=== PATIENT | male | born 1980 | race Caucasian/White ===

== ENCOUNTER 2017-08-15 17:12 | Emergency (ER) | payer OTHER ==
[~2017-08-15] VITALS: Ht 177.8 cm; Wt 100.2 kg
[2017-08-15 17:16] VITALS: Ht 177.8 cm; Wt 100.2 kg
[2017-08-15 18:41] LABS: BASOPHIL % 0.3 % (0-2); CALCIUM 9.1 mg/dL (8.5-10.1); GFR1 > 60 mL/min; GLUCOSE SERUM 141 mg/dL (74-106); PLATELET COUNT 215 x10^3mcL (130-400); POTASSIUM SERUM 3.8 mmol/L (3.5-5.1); RED CELL DISTRIBUTION WIDTH 12.9 % (11.5-14.5); SODIUM SERUM 142 mmol/L (136-145)
[2017-08-15 18:45] LABS: ALBUMIN 3.9 g/dL (3.4-5.0); ALKALINE PHOSPHATASE 47 U/L (46-116); ALT/SGPT 29 U/L (16-63); AST/SGOT 15 U/L (15-37); BILIRUBIN TOTAL 0.88 mg/dL (0.20-1.00); TOTAL PROTEIN, SERUM 7.3 g/dL (6.4-8.2)
[2017-08-15 19:06] LABS: CHLORIDE SERUM 106 mmol/L (98-107)
[2017-08-15 19:09] LABS: AMPHETAMINE QUAL UR NONE DETECTED (NEG <=1000)
[2017-08-15 20:00] VITALS: BP 111/66
== END 2017-08-15 20:00 | disposition home or self-care (01) ==
LOC: ED 17:12
PROVIDERS: Emergency Medicine
DX: R07.89 Other chest pain (principal)
CPT/HCPCS: 36600; 83880; J1885